=== PATIENT | female | born 1960 | race Caucasian/White ===

== ENCOUNTER 2017-11-23 16:37 | Inpatient (IN) ==
[2017-11-23] MEDS ORDERED: Isovue-370 500 ML INFUS..BTL IV ONE (17:07)
[2017-11-23] MEDS ORDERED: 0.9 % Sodium Chloride 1,000 ML IVC ONE (17:07)
[2017-11-23] MEDS ORDERED: Piperacillin/Tazobactam 3.375 GM in 0.9 % Sodium Chloride Mini Bag 100 ML IVPB ONE (17:11)
--- NOTE | 2017-11-23 17:13 | Emergency Department Note ---
Disposition Clinical Impression: Acute kidney injury Cellulitis Qualifiers: Site of cellulitis: extremity Site of cellulitis of extremity: lower extremity Laterality: right Qualified Code(s): L03.115 - Cellulitis of right lower limb Sepsis Qualifiers: Sepsis type: sepsis due to unspecified organism Qualified Code(s): A41.9 - Sepsis, unspecified organism Disposition: Still a Patient Condition: Fair Referrals: Bella Morales DO [Primary Care Provider] - Forms: ED Satisfaction Letter Time of Disposition: 19:32 Extremity Problem HPI - General Chief complaint: ED Extremity Problem,Nontraumatic Stated complaint: R foot swelling Time Seen by Provider: 11/23/17 16:47 Nursing Notes Reviewed: Yes Vital Signs Reviewed: Yes - History of Present Illness HPI Narrative: 49-year-old female presents from home for evaluation of right lower extremity swelling and redness which started 4 days ago. She was seen and evaluated in this emergency department 11/22 in the early hours in the morning. The area of redness was circumscribed with a purple pain and she was told to return if the redness expands beyond the inscribed area. It has expanded beyond the described area despite use of Bactrim which she was prescribed on that visit. She has associated chills and sweats with nausea. PMH: Hypertension, morbid obesity ROS: Positive: As above Negative: Vomiting, chest pain, palpitations, history of peripheral arterial or vascular disease, history of diabetes, history of poor healing wounds. Pain Scale: 3 - Related Data Previous Rx's Medication Instructions Recorded Sulfamethoxazole/Trimeth DS 1 each PO BID #19 tablet 11/22/17 [Bactrim DS] Allergies Allergy/AdvReac Type Severity Reaction Status Date / Time No Known Allergies Allergy Verified 11/21/17 23:56 All systems ED: reviewed and negative except as stated. Review of Systems: As Per HPI Past Medical History - Past Medical History Medical history: Reports: hypertension Psychiatric history: Reports: depression - Social History Smoking Status: Never smoker Alcohol use: Reports: none Drug use: Reports: none Physical Exam Vital Signs Reviewed General: Patient is alert, oriented, and in no acute distress. Head: atraumatic, normocephalic Eye: normal appearance, no scleral icterus, no conjunctival injection ENT: mucous membranes moist, normal external ear exam Neck: normal inspection, trachea midline, full ROM Chest: normal inspection, symmetric chest rise Respiratory: Poor respiratory effort. Musculoskeletal: Spontaneously moving all extremities. Skin: Right lower extremity has 2+ pitting pedal edema, significant erythema, crepitus to palpation, weeping ulceration. The boundary of erythema is spreading beyond the circumscribed lines from her prior emergency department visit. Neuro: Alert and oriented x4. Sensation light touch intact. Psych: Patient's affect is appropriate for situation. Course Course Narrative: Patient presents with worsening right lower extremity cellulitis. Has crepitus. Will CT soft tissue of right lower extremity with IV contrast. Patient denies need for analgesia at this time. She has no history of any kidney disease. Will empirically cover with vancomycin and Zosyn as well as draw blood cultures. Anticipate admission for continued IV antibiotics and aggressive therapy. CT lower extremity with IV contrast shows no subcutaneous gas in no organized fluid collection. Patient is SIRS (+) by tachypnea and WBC. Laboratory work shows acute kidney injury. Unfortunate, the patient has already received IV contrast as well as vancomycin. Will continue IV fluids. Patient is agreeable to admission for IV antibiotics for continued evaluation and management. I discussed the patient with the admitting hospitalist, Dr. Sotelo, who agrees to accept the patient for continued evaluation and management of her sepsis, acute kidney injury, Lower Extremity CT 11/23/17 17:07 IMPRESSION: 1. Severe subcutaneous edema with associated skin thickening most pronounced distally within the lower leg and most pronounced posteriorly and medially within the thigh. Findings may reflect longstanding venous stasis or lymph edema. Correlate clinically to exclude cellulitis. No subcutaneous gas identified. No organized fluid collection. 2. No acute osseous abnormality. No CT evidence for osteomyelitis. 3. Tricompartmental osteoarthritis of the right knee which is severe within the medial compartment. D/ / Tremaine Cleveland MD / Tremaine Cleveland MD Interpreting Provider: Tremaine Cleveland MD Vital Signs Temperature 98.0 F 11/23/17 16:39 Pulse Rate 93 11/23/17 16:39 Respiratory Rate 20 11/23/17 16:39 Blood Pressure 112/66 11/23/17 16:39 O2 Sat by Pulse Oximetry 93 11/23/17 16:39 Temperature 98.0 F 11/23/17 17:37 Pulse Rate 93 11/23/17 17:37 Respiratory Rate 20 11/23/17 17:37 Blood Pressure 112/66 11/23/17 17:37 O2 Sat by Pulse Oximetry 93 11/23/17 17:37 Oxygen Delivery Oxygen Delivery Room Air Extremity Problem, Nontraumati - Lab Data Result diagrams: 11/23/17 17:37 11/23/17 17:37 Lab Results 11/23/17 11/23/17 11/23/17 Range/Units 17:36 17:37 17:37 WBC 14.2 H (4.3-11.1) K/mcL RBC 4.31 (3.82-4.97) M/mcL Hgb 11.6 D (11.5-15.4) g/dL Hct 37.6 (35.3-44.9) % MCV 87.2 (83.0-100.0) fL MCH 26.9 L (28.0-33.3) pg MCHC 30.9 L (31.6-35.5) g/dL RDW 15.3 H (11.5-14.5) % Plt Count 167 (140-400) K/mcL MPV 11.1 (9.4-12.4) fL Immature Gran % 1.5 (0-4) % Seg Neutrophils % 91.0 % Lymphocytes % 3.9 % Monocytes % 3.4 % Eosinophils % 0.1 % Basophils % 0.1 % Neutrophils # 13.0 H (1.6-8.9) K/mcL Lymphocytes # 0.6 (0.6-4.6) K/mcL Monocytes # 0.5 (0.0-1.3) K/mcL Eosinophils # 0.0 (0.0-0.6) K/mcL Basophils # 0.0 (0.0-0.2) K/mcL Sodium 136 (136-145) mEq/L Potassium 3.3 L (3.5-5.1) mEq/L Chloride 102 (98-107) mEq/L Carbon Dioxide 26 (23-29) mEq/L BUN 44 H (6-20) mg/dL Creatinine 2.05 H (0.60-1.20) mg/dL Est GFR ( Amer) 30 L (> 60) Est GFR (Non-Af Amer) 25 L (> 60) BUN/Creatinine Ratio 21 (6-26) Glucose 140 H (70-105) mg/dL Calculated Osmolality 295 (280-300) Lactic Acid 1.5 (0.5-2.2) mmol/L Calcium 8.6 (8.6-10.3) mg/dL
[2017-11-23 18:04] LABS: Basophils % 0.1 %; Eosinophils % 0.1 %; Hematocrit 37.6 % (35.3-44.9); Hemoglobin 11.6 g/dL (11.5-15.4); Immature Granulocytes % 1.5 % (0-4); Lymphocytes # 0.6 K/mcL (0.6-4.6); Lymphocytes % 3.9 %; Mean Corpuscular HGB Conc 30.9 g/dL (31.6-35.5); Mean Corpuscular Hemoglobin 26.9 pg (28.0-33.3); Mean Corpuscular Volume 87.2 fL (83.0-100.0); Mean Platelet Volume 11.1 fL (9.4-12.4); Monocytes # 0.5 K/mcL (0.0-1.3); Monocytes % 3.4 %; Platelet Count 167 K/mcL (140-400); Red Blood Count 4.31 M/mcL (3.82-4.97); Red Cell Distribution Width 15.3 % (11.5-14.5)
[2017-11-23 18:13] LABS: Calcium 8.6 mg/dL (8.6-10.3); Potassium 3.3 mEq/L (3.5-5.1)
[2017-11-23] MEDS ORDERED: 0.9 % Sodium Chloride 1,000 ML IVC SCH (19:30)
--- NOTE | 2017-11-23 19:31 | Emergency Department Note ---
Disposition Clinical Impression: Cellulitis Qualifiers: Site of cellulitis: extremity Site of cellulitis of extremity: lower extremity Laterality: right Qualified Code(s): L03.115 - Cellulitis of right lower limb Disposition: Admitted As Inpatient Condition: Fair Referrals: Bella Morales DO [Primary Care Provider] - Forms: ED Satisfaction Letter General Adult HPI - General Chief complaint: ED Extremity Problem,Nontraumatic Stated complaint: R foot swelling Time Seen by Provider: 11/23/17 16:47 Source: patient Limitations: no limitations - History of Present Illness Pain Scale: 3 - Related Data Previous Rx's Medication Instructions Recorded Sulfamethoxazole/Trimeth DS 1 each PO BID #19 tablet 11/22/17 [Bactrim DS] Allergies Allergy/AdvReac Type Severity Reaction Status Date / Time No Known Allergies Allergy Verified 11/21/17 23:56 Past Medical History - Past Medical History Medical history: Reports: hypertension Psychiatric history: Reports: depression - Social History Smoking Status: Never smoker Alcohol use: Reports: none Drug use: Reports: none Physical Exam - General Limitations: no limitations General appearance: alert Course Vital Signs Temperature 98.0 F 11/23/17 16:39 Pulse Rate 93 11/23/17 16:39 Respiratory Rate 20 11/23/17 16:39 Blood Pressure 112/66 11/23/17 16:39 O2 Sat by Pulse Oximetry 93 11/23/17 16:39 Temperature 98.0 F 11/23/17 17:37 Pulse Rate 93 11/23/17 17:37 Respiratory Rate 20 11/23/17 17:37 Blood Pressure 112/66 11/23/17 17:37 O2 Sat by Pulse Oximetry 93 11/23/17 17:37 Oxygen Delivery Oxygen Delivery Room Air Medical Decision Making - Lab Data Result diagrams: 11/23/17 17:37 11/23/17 17:37 Lab Results 11/23/17 11/23/17 11/23/17 Range/Units 17:36 17:37 17:37 WBC 14.2 H (4.3-11.1) K/mcL RBC 4.31 (3.82-4.97) M/mcL Hgb 11.6 D (11.5-15.4) g/dL Hct 37.6 (35.3-44.9) % MCV 87.2 (83.0-100.0) fL MCH 26.9 L (28.0-33.3) pg MCHC 30.9 L (31.6-35.5) g/dL RDW 15.3 H (11.5-14.5) % Plt Count 167 (140-400) K/mcL MPV 11.1 (9.4-12.4) fL Immature Gran % 1.5 (0-4) % Seg Neutrophils % 91.0 % Lymphocytes % 3.9 % Monocytes % 3.4 % Eosinophils % 0.1 % Basophils % 0.1 % Neutrophils # 13.0 H (1.6-8.9) K/mcL Lymphocytes # 0.6 (0.6-4.6) K/mcL Monocytes # 0.5 (0.0-1.3) K/mcL Eosinophils # 0.0 (0.0-0.6) K/mcL Basophils # 0.0 (0.0-0.2) K/mcL Sodium 136 (136-145) mEq/L Potassium 3.3 L (3.5-5.1) mEq/L Chloride 102 (98-107) mEq/L Carbon Dioxide 26 (23-29) mEq/L BUN 44 H (6-20) mg/dL Creatinine 2.05 H (0.60-1.20) mg/dL Est GFR ( Amer) 30 L (> 60) Est GFR (Non-Af Amer) 25 L (> 60) BUN/Creatinine Ratio 21 (6-26) Glucose 140 H (70-105) mg/dL Calculated Osmolality 295 (280-300) Lactic Acid 1.5 (0.5-2.2) mmol/L Calcium 8.6 (8.6-10.3) mg/dL Attestation Statement - Attestation Attestation: I examined this patient and my medical decision-making was reviewed with the Resident Physician. I agree with the documented findings, disposition and treatment plan as described except to the extent set forth below. 57 year old female prsente to the eD with complanits of right foot swelling it appears to be worsenign cellulitis which has been confirmed by CT and we have initiated sepsis workup and will admit to medicine with zosyn and vancomycin theray
[2017-11-23] MEDS ORDERED: Acetaminophen 325 MG TABLET PO PRN (19:47)
[2017-11-23] MEDS ORDERED: Naloxone 0.4 MG/ML INJ IVP PRN (19:47)
--- NOTE | 2017-11-23 21:25 | Internal Med History&Physical ---
Date of Encounter: 11/23/17 Time of Encounter: 21:22 Internal Medicine - H&P: HPI Chief complaint: Right leg swelling. Admitted From: Home Plans for Post Hospital Care: Home History of present illness: Ms. Hester is a 57 year old female with medical history of GERD and hypertension morbid obesity who presented with worsening right lower extremity swelling and redness, and worsening pain. The patient had presented to the emergency room a few days ago with similar symptoms and was discharged on Bactrim. She represented to the ER today because of increasing weakness, lethargy, and worsening right lower extremity redness, swelling and pain. She reports subjective fever and chills, night sweats, and generalized weakness. She denies chest pain, shortness of breath, dizziness, or confusion. She denies genitourinary symptoms. She denies nausea, vomiting or diarrhea. She denies changes in urine output or color,, she denies forming urine. She reports she has been taking meloxicam for osteoarthritic pain, for several years. She has a family doctor she follows up regularly, last blood work in August was said to be normal. During the time of review, patient and family members were at the bedside, patient reports she is full code. Past medical history significant for hypertension, the patient does not remember her blood pressure medication. She denies a history of smoking or illicit drug use. Workup in the ER revealed severe sepsis with tachycardia, leukocytosis and acute kidney injury. Lactate was normal, hemodynamically stable, right lower extremity CAT scan ruled out any abscess collections. The patient will be admitted inpatient for management of sepsis secondary to cellulitis with acute kidney injury, hypokalemia, which is expected that her hospital stay will be more than 2 midnights. Past Med Surg Social Fam HX - Past Medical History Medical history: hypertension Psychiatric history: depression - Social History Smoking Status: Never smoker Alcohol use: none Drug use: none Internal Medicine - H&P: Meds Sulfamethoxazole/Trimeth DS [Bactrim DS] 1 each PO BID #19 tablet 11/22/17 [Rx] 3 Allergy/AdvReac Type Severity Reaction Status Date / Time No Known Allergies Allergy Verified 11/21/17 23:56 All Systems PM: A 10-system review of systems was performed and is negative for pertinent findings except as documented above in the HPI. - Constitutional Constitutional: as per HPI - EENT Eyes: as per HPI Ears: as per HPI Nose, mouth and throat: as per HPI - Cardiovascular Cardiovascular ROS IM: as per HPI - Respiratory Respiratory: as per HPI - Gastrointestinal Gastrointestinal: as per HPI - Genitourinary Genitourinary: as per HPI - Musculoskeletal Musculoskeletal ROS IM: as per HPI - Integumentary Integumentary IM: as per HPI - Neurological Neurological ROS: as per HPI - Hematologic/Lymphatic Hematologic/Lymphatic: as per HPI - Constitutional Vitals: Temp Pulse Resp BP Pulse Ox 98.8 F 91 18 122/85 93 11/23/17 20:43 11/23/17 20:43 11/23/17 20:43 11/23/17 20:43 11/23/17 20:43 General appearance: Present: A&O X 3, morbidly obese, pleasant, no acute distress - Head Head exam: Present: atraumatic, normocephalic - Eye Eye exam: Present: PERRL, conjuntiva pink, sclera anicteric Pupils: Present: PERRL - Neck Neck exam general surgery: Present: supple, trachea midline. Absent: lymphadenopathy - Respiratory Respiratory exam: Present: CTAB. Absent: accessory muscle use, rales, rhonchi, wheezes - Cardiovascular Cardiovascular exam: Present: RRR, +S1, +S2. Absent: diastolic murmur, gallop, rubs, systolic murmur - GI/Abdominal GI/Abdominal exam: Present: normal bowel sounds, soft, no peritoneal signs. Absent: distended, tenderness - Extremities Exam Additional comments: Right lower extremity with swelling, to the knees, diffuse erythema and tenderness, no visible indurations or abscess collections. Left Lower extremities unremarkable - Neurological Exam Neurological exam: Present: alert, CN II-XII intact, oriented X3, no focal deficits. Absent: pronater drift, facial droop, speech deficit - Skin Skin exam: Present: dry Internal Med - H&P Results - Labs CBC & Chem 7: 11/23/17 17:37 11/23/17 17:37 - Assessment and plan (1) Severe sepsis Current Visit: Yes Status: Acute Assessment and plan: Patient meets severe sepsis criteria with heart rate of 93 on presentation, leukocytosis with white count greater than 14,000, source of sepsis is cellulitis, with associated end organ damage acute kidney injury. The patient received vancomycin and Zosyn in the ER. Blood cultures are drawn and preliminary negative. Due to acute kidney injury, we will discontinue vancomycin and Zosyn, continue clindamycin. Follow blood culture reports Lactic acid is normal, Blood pressure is within normal limits at this time. IV fluid resuscitation (2) Cellulitis Current Visit: Yes Status: Acute Assessment and plan: Management as in sepsis above No abscess collection No indication for surgery evaluation at this time. Qualifiers: Site of cellulitis: extremity Site of cellulitis of extremity: lower extremity Laterality: right Qualified Code(s): L03.115 - Cellulitis of right lower limb (3) Acute kidney injury Current Visit: Yes Status: Acute Assessment and plan: Patient with acute kidney injury baseline creatinine approximately 1, presented with creatinine of 2.05 Most likely prerenal, could be component of intrarenal due to use of Bactrim with and NSAIDS Obtain stat urine analysis, urinary sodium and urine creatinine, Continue IV fluid hydration Obtain retroperitoneal ultrasound Strict intake and output Avoid nephrotoxins Consider nephrology input if not improving. (4) Morbid obesity with BMI of 60.0-69.9, adult Current Visit: Yes Status: Chronic Assessment and plan: Lifestyle modification. (5) Hypertension Current Visit: Yes Status: Chronic Assessment and plan: Patient does not remember home medications Start Norvasc 5 mg by mouth daily from morning. Qualifiers: Hypertension type: essential hypertension Qualified Code(s): I10 - Essential (primary) hypertension (6) GERD (gastroesophageal reflux disease) Current Visit: Yes Status: Chronic Assessment and plan: Continue Zantac. Qualifiers: Esophagitis presence: without esophagitis Qualified Code(s): K21.9 - Gastro -esophageal reflux disease without esophagitis - Time Spent With Patient Total time spent is greater than 50% in coordination of care (as documented) at patient's floor/unit and/or counseling patient:
[2017-11-23] MEDS: Clindamycin 600 MG/50 ML 600 MG/50 ML IV.SOLN IVPB SCH (23:34)
[2017-11-23] MEDS: traMADol 50 MG TABLET PO PRN (23:34)
[2017-11-23] MEDS: Ringers Solution, Lactated 1,000 ML IVC SCH (23:44)
[2017-11-24 04:35] LABS: Basophils % 0.2 %; Eosinophils % 0.2 %; Hematocrit 35.4 % (35.3-44.9); Hemoglobin 11.1 g/dL (11.5-15.4); Immature Granulocytes % 1.4 % (0-4); Lymphocytes # 0.5 K/mcL (0.6-4.6); Lymphocytes % 4.7 %; Mean Corpuscular HGB Conc 31.4 g/dL (31.6-35.5); Mean Corpuscular Hemoglobin 27.4 pg (28.0-33.3); Mean Corpuscular Volume 87.4 fL (83.0-100.0); Monocytes # 0.5 K/mcL (0.0-1.3); Monocytes % 4.7 %; Neutrophils # 9.8 K/mcL (1.6-8.9); Platelet Count 156 K/mcL (140-400); Red Blood Count 4.05 M/mcL (3.82-4.97); Red Cell Distribution Width 15.4 % (11.5-14.5); Segmented Neutrophils % 88.8 %
[2017-11-24 04:55] LABS: Calcium 8.5 mg/dL (8.6-10.3); Potassium 3.6 mEq/L (3.5-5.1)
[2017-11-24] MEDS: *HR* Heparin 5,000 UNIT/ML VIAL SQ SCH ×2 (05:11→17:44)
[2017-11-24 08:21] LABS: Bilirubin,Urine Negative (Negative); Blood,Urine Small (Negative); Clarity,Urine Clear (Clear); Color,Urine Yellow (Yellow); Glucose,Urine (UA) Normal (Normal); Ketones,Urine Negative (Negative); Leukocyte Esterase,Urine Negative (Negative); Nitrite,Urine Negative (Negative); PH,Urine 6.5 pH Units (5.0-8.0); Protein,Urine 100 mg/dL (Neg-Trace); Specific Gravity,Urine 1.025 (1.010-1.025); Urobilinogen,Urine Normal (Normal)
[2017-11-24 08:31] LABS: Sodium, Urine 30.4 mEq/L
[2017-11-24] MEDS: Ringers Solution, Lactated 1,000 ML IVC SCH (09:21)
[2017-11-24] MEDS: Clindamycin 600 MG/50 ML 600 MG/50 ML IV.SOLN IVPB SCH (09:22)
[2017-11-24] MEDS: amLODIPine 5 MG TABLET PO SCH (09:29)
--- NOTE | 2017-11-24 12:23 | Internal Med Progress Note ---
Date of Encounter: 11/24/17 Time of Encounter: 12:21 - Assessment and plan (1) Cellulitis Current Visit: Yes Status: Acute Assessment and plan: Management as in sepsis above No abscess collection No indication for surgery evaluation at this time. 11/24-significant cellulitis involving almost the entire lower leg. This point I would like to continue clindamycin however my threshold of adding another antibiotic is low. Consult placed to infectious disease given the severity of the extent of cellulitis. Patient does have a history of vaginal hysterectomy and lymph node removal because of which she has chronic lymphedema which predisposes her to her risk of getting cellulitis. Qualifiers: Site of cellulitis: extremity Site of cellulitis of extremity: lower extremity Laterality: right Qualified Code(s): L03.115 - Cellulitis of right lower limb (2) Acute kidney injury Current Visit: Yes Status: Acute Assessment and plan: Patient with acute kidney injury baseline creatinine approximately 1, presented with creatinine of 2.05 Most likely prerenal, could be component of intrarenal due to use of Bactrim with and NSAIDS Obtain stat urine analysis, urinary sodium and urine creatinine, Continue IV fluid hydration Obtain retroperitoneal ultrasound Strict intake and output Avoid nephrotoxins Consider nephrology input if not improving. 11/24-acute renal failure is now improving her creatinine today is 1.37 and slowly returned to baseline. I will continue IV fluids today and monitor BMP in the morning. (3) Severe sepsis Current Visit: Yes Status: Resolved Assessment and plan: Patient meets severe sepsis criteria with heart rate of 93 on presentation, leukocytosis with white count greater than 14,000, source of sepsis is cellulitis, with associated end organ damage acute kidney injury. The patient received vancomycin and Zosyn in the ER. Blood cultures are drawn and preliminary negative. Due to acute kidney injury, we will discontinue vancomycin and Zosyn, continue clindamycin. Follow blood culture reports Lactic acid is normal, Blood pressure is within normal limits at this time. IV fluid resuscitation 11/24-sepsis is slowly getting resolved at this point. Leukocytosis is improved. Most likely etiology is cellulitis. (4) Morbid obesity with BMI of 60.0-69.9, adult Current Visit: Yes Status: Chronic Assessment and plan: Lifestyle modification education provided again (5) Hypertension Current Visit: Yes Status: Chronic Assessment and plan: Patient does not remember home medications Start Norvasc 5 mg by mouth daily from morning. Qualifiers: Hypertension type: essential hypertension Qualified Code(s): I10 - Essential (primary) hypertension (6) GERD (gastroesophageal reflux disease) Current Visit: Yes Status: Chronic Assessment and plan: Continue Zantac. Qualifiers: Esophagitis presence: without esophagitis Qualified Code(s): K21.9 - Gastro -esophageal reflux disease without esophagitis - Time Spent With Patient Total time spent is greater than 50% in coordination of care (as documented) at patient's floor/unit and/or counseling patient: Case also discussed with the patient's family at the bedside and also discussed the plan of care with the nurse at the bedside Greater than 35 minutes - Subjective Interval history: Patient continues to have pain in the right lower extremity. She states that the redness is getting worse however she does not have any new fevers or chills at this point. - Constitutional Vitals: Temp Pulse Resp BP Pulse Ox 98.4 F 102 18 133/75 94 11/24/17 07:43 11/24/17 07:43 11/24/17 07:43 11/24/17 07:43 11/24/17 07:43 General appearance: Present: A&O X 3, morbidly obese, pleasant, no acute distress Exam: GENERAL: Alert, moderate distress, cooperative EYES: PERRLA, EOMI EARS: External ears normal, canals clear OROPHARYNX: Lips, mucosa, and tongue normal. Teeth and gums normal. Oropharynx normal. NECK: No jugulovenous distention, No carotid bruits, Carotid pulse normal contour, Supple LUNGS: Lungs clear to auscultation, Good diaphragmatic excursion CARDIAC: Normal S1 and S2; no rubs, murmurs, or gallops ABDOMEN: Abdomen soft, non-tender, BS normal, No masses or organomegaly EXTREMITIES: Right lower extremity diffuse edema throughout. Extensive erythematous cellulitis seen in below the knee. She does have some fluid- filled blisters. Significant dorsal edema on the foot as well. The erythema is extending beyond the marked area that was outlined in the ER on her prior visit NEURO: Gait normal. Reflexes normal and symmetric. Sensation grossly intact, Cranial nerves II-XII intact PULSES: 2+ radial, 2+ carotid Rest of the exam is non contributory Internal Medicine: Result - Labs CBC & Chem 7: 11/24/17 04:09 11/24/17 04:09 Labs: Short CBC 11/24/17 Range/Units 04:09 WBC 11.0 (4.3-11.1) K/mcL Hgb 11.1 L (11.5-15.4) g/dL Hct 35.4 (35.3-44.9) % Plt Count 156 (140-400) K/mcL Neutrophils # 9.8 H (1.6-8.9) K/mcL BMP 11/24/17 04:09 Sodium 137 Potassium 3.6 Chloride 106 Carbon Dioxide 25 BUN 41 H Creatinine 1.37 H Glucose 135 H Calcium 8.5 L Urine 11/24/17 Range/Units 08:10 Urine Color Yellow (Yellow) Urine Clarity Clear (Clear) Urine pH 6.5 (5.0-8.0) pH Units Ur Specific [place] 1.025 (1.010-1.025) Urine Protein 100 H (Neg-Trace) mg/dL Urine Glucose (UA) Normal (Normal) mg/dL Consult Discharge Plan - Plan Referrals: Bella Morales DO [Primary Care Provider] -
--- NOTE | 2017-11-24 14:38 | Infectious Disease Consult ---
Date of Encounter: 11/24/17 Time of Encounter: 14:33 Infectious Disease HPI - Data of Consult Patient: new to practice Consult date: 11/24/17 Requesting Physician: Josef Alberto Primary Care Provider: Saul Ness - Consult Narrative Reason for consult: RLE Cellulitis History of present illness: Ms. Hester is a 57 year old female with a past medical history of GERD, morbid obesity, and HTN. The patient was admitted to the hospital November 23 for right lower extremity cellulitis. We are consult November 24 for further recommendations for right lower extremity cellulitis. Briefly, the patient is a 57-year-old female with past medical history as stated above. The patient had presented to the emergency department on November 22 with complaints of right lower extremity redness and swelling. She was given a prescription for Bactrim and had the edges of the cellulitis were marked and was discharged home. She states that despite taking the Bactrim as prescribed her symptoms worsen so she came back to the emergency department. Upon arrival , the patient was afebrile. She was tachycardic and had leukocytosis with an acute kidney injury. She had a CT of the lower extremity that showed severe subcutaneous edema concerning for venous stasis versus lymphedema versus cellulitis. Blood cultures were obtained 2 sets and are pending. She was started empirically on IV vancomycin and IV Zosyn and admitted to the hospital for further evaluation. Since admission, the patient has remained afebrile. Her tachycardia has improved. White blood cell count has normalized. Her acute kidney injury is better. Her antibiotics then transitioned to IV clindamycin. Urinalysis was negative. Retroperitoneal ultrasound is pending completion. We have been asked to evaluate and make further recommendations. During my exam today, the patient endorses a history as stated above. She reported subjective fevers and chills with rigors. She denied any headache or neck pain. She denies any congestion, earache, or sore throat. She denies any chest pain, shortness of breath, or cough. She denies any nausea or vomiting or diarrhea. She denies abdominal pain, urinary complaints, or appetite changes. She states that generally she just felt unwell and was very tired and wanted to sleep all day. She states that about 4 days prior to presentation she began to notice some redness and swelling of the right foot slowly progressed up her leg. She states that the redness and swelling persisted and got worse by taking the Bactrim. He states that while here her leg started the oral thrush or other skin lesions. She states that since having her hysterectomy a few years ago she has had persistent swelling of the right lower extremity, but denies any discoloration of the leg or the foot. She denies any known trauma to the extremity. She states that overall the leg is not terribly painful, just uncomfortable. She states it feels a little better today, but doesn't look much better. And granddaughter. 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 She denies any tobacco, alcohol, or illicit drug use. She denies any history of diabetes. She denies any pet or animal exposure to the affected area. She denies any prolonged exposure to water. She denies any infectious history. She denies any recent travel outside the [facility]. CC: Josef Alberto Past Med Surg Social Fam HX - Past Medical History Attestation: Yes The following information was validated with the patient. Source: patient, old records reviewed, nursing notes reviewed Medical history: GERD, hypertension Additional medical history: Acid reflux Psychiatric history: depression - Past Surgical History Surgical History: hysterectomy - Social History Smoking Status: Never smoker Smokeless Tobacco Status: No Alcohol use: none Drug use: none Occupational status: employed Current living situation: Home - Independent Activity Level: Independent ambulation Recent Out of Country Travel Within the Last 8 Weeks: No Exposure or Possible Exposure to Illness During Travel: No Infectious Disease-CN:Meds BuPROPion XL (24 HR) [Wellbutrin Xl] 150 mg PO DAILY 11/24/17 [History] Acetaminophen [Tylenol] 650 mg PO Q6HR PRN tablet 11/25/17 [Rx] Heparin 5,000 unit SQ Q12HCO vial 11/25/17 [Rx] Mag Hydrox/Al Hydrox/Simeth [Maalox] 30 ml PO Q6HR PRN udc 11/25/17 [Rx] Pantoprazole [Protonix] 40 mg IVP BID vial 11/25/17 [Rx] Rjahzundrcjf-Pnym-Xizezwqw,Iso [Zosyn 3.375 gm/50 ml Galaxy] 3.375 gm IV Q8HR # 120 froz.piggy 11/25/17 [Rx] Vancomycin HCl in 5 % Dextrose [Vancomycin 2 Gram/500 ml-D5w] 2 gm IV DAILY # 120 plast..bag 11/25/17 [Rx] 3 Allergy/AdvReac Type Severity Reaction Status Date / Time No Known Allergies Allergy Verified 11/24/17 10:01 All systems: reviewed and no additional remarkable complaints except as stated Exam - Constitutional Vitals: Temp Pulse Resp BP Pulse Ox 98.4 F 102 18 133/75 94 11/24/17 07:43 11/24/17 07:43 11/24/17 07:43 11/24/17 07:43 11/24/17 07:43 General appearance: cooperative, morbidly obese, no acute distress - Head Head exam: Present: atraumatic, normal inspection, normocephalic - Eye Eye exam: Present: EOMI, normal appearance, PERRL Pupils: Present: normal accommodation - ENT ENT exam: Present: mucous membranes moist - Neck Neck exam: Present: normal inspection - Respiratory Respiratory exam: Present: CTAB. Absent: rales, respiratory distress, rhonchi, wheezes - Cardiovascular Cardiovascular exam: Present: RRR, +S1, +S2 - GI/Abdominal GI/Abdominal exam: Present: distended (obese), normal bowel sounds, soft. Absent: tenderness - Extremities Exam Extremities exam: Present: pedal edema (1+ LLE, 3+ RLE). Absent: joint swelling , tenderness Additional comments: RLE erythematous from proximal to right knee to toes. Weeping blisters x 2 noted to the anterior aspect of the RLE draining serous fluid. - Neurological Exam Neurological exam: Present: alert, oriented X3, no focal deficits - Psychiatric Psychiatric exam: Present: normal affect, normal mood - Skin Skin exam: Present: dry, intact, normal color, warm Infectious Disease CN: Results - Labs CBC & Chem 7: 11/25/17 11:45 11/25/17 08:53 Serology: Serology 11/24/17 11/24/17 Range/Units 08:10 08:10 Urine Color Yellow (Yellow) Urine Clarity Clear (Clear) Urine pH 6.5 (5.0-8.0) pH Units Ur Specific [place] 1.025 (1.010-1.025) Urine Protein 100 H (Neg-Trace) mg/dL Urine Glucose (UA) Normal (Normal) mg/dL Urine Ketones Negative (Negative) mg/dL Urine Blood Small H (Negative) Urine Nitrite Negative (Negative) Urine Bilirubin Negative (Negative) Urine Urobilinogen Normal (Normal) mg/dL Ur Leukocyte Esterase Negative (Negative) Urine Creatinine 99 mg/dL Urine Sodium 30.4 mEq/L Consult Discharge Plan - Plan Referrals: Bella Morales DO [Primary Care Provider] - Prescriptions: Dvlmnqahmjcb-Srka-Uvxvvurs,Iso [Zosyn 3.375 gm/50 ml Galaxy] 3.375 gm IV Q8HR # 120 froz.piggy Vancomycin HCl in 5 % Dextrose [Vancomycin 2 Gram/500 ml-D5w] 2 gm IV DAILY # 120 plast..bag - Attending Attestation I examined this patient and my medical decision-making was reviewed with the Resident Physician. I agree with the documented findings, disposition and treatment plan as described except to the extent set forth below. This is an addendum to original report dictated by Chhaya Bella nurse practitioner please refer to Chhaya's note for full detail. Patient is a 57-year-old woman who is presented with severe cellulitis of the right lower extremity. We were consulted to make antibiotic recommendations. Sodium patient presented to the MRSA department on day prior complaining of right lower extremity redness and swelling. Patient was given prescription for Bactrim and apparently it made things worse. On further questioning patient tells me that she had a hysterectomy in the past and has had lymphedema in the right lower extremity that is always more swollen than the left lower extremity but she tells me now is even swollen more with associated erythema and warmth to touch. Patient presented to the ER for evaluation. Since admission patient had a CT of the lower extremity which shows severe 70s edema concerning for venous stasis versus lymphedema versus cellulitis. Cultures were obtained and patient was started empirically on vancomycin and Zosyn. Clinically patient started doing better and all cultures were still pending. We were asked to evaluate the patient and make further recommendations. Currently patient was sitting on the side of the bed very pleasant with her foot on the floor. I told her that is better if she keeps her somewhat elevated and she tells me that she did not all day today. Her son I believe was admitted time. Patient feels great she denies any headaches no chest pain or shortness of breath no diarrhea pain no other symptoms. assessment and plan: severe sepsis patient has sirs criteria with end organ damage including acute kidney injury. severe cellulitis of the right lower extremity; ct was negative for abscess or signs of necrotizing fasciitis. patient was started empirically on vancomycin and zosyn. causative organism has not been identified. we will continue current antibiotics for now since she failed outpatient oral antibiotic therapy. monitor labs closely specially kidney function with a recent creatinine of 2. check labs and inflammatory markers. if patient continues to improve in 2-3 days we will probably switch her to oral option hopefully that she can tolerate. monitor labs and for drug toxicity.
[2017-11-24] MEDS: traMADol 50 MG TABLET PO PRN ×2 (18:16→23:57)
[2017-11-24] MEDS: Piperacillin/Tazobactam 3.375 GM in 0.9 % Sodium Chloride Mini Bag 100 ML IVPB SCH (20:31)
[2017-11-24] MEDS: *HR* OxyCODONE Immed Rel 5 MG TABLET PO PRN (21:26)
[2017-11-24] MEDS ORDERED: Melatonin 3 MG TABLET PO SCH (23:30)
[2017-11-25] MEDS ORDERED: *HR* LORazepam 0.5 MG TABLET PO ONE ×2 (03:36→11:45)
[2017-11-25] MEDS: *HR* Heparin 5,000 UNIT/ML VIAL SQ SCH (05:45)
[2017-11-25] MEDS: Piperacillin/Tazobactam 3.375 GM in 0.9 % Sodium Chloride Mini Bag 100 ML IVPB SCH ×2 (08:12→12:03)
[2017-11-25] MEDS: amLODIPine 5 MG TABLET PO SCH (08:23)
[2017-11-25] MEDS: *HR* OxyCODONE Immed Rel 5 MG TABLET PO PRN (08:23)
[2017-11-25] MEDS ORDERED: BuPROPion XL (24 HR) 150 MG TABLET PO SCH (09:00)
[2017-11-25] MEDS ORDERED: *HR* LORazepam 1 MG TABLET PO PRN (09:14)
[2017-11-25 09:45] LABS: Hematocrit 32.1 % (35.3-44.9); Hemoglobin 10.3 g/dL (11.5-15.4); Mean Corpuscular HGB Conc 32.1 g/dL (31.6-35.5); Mean Corpuscular Hemoglobin 28.3 pg (28.0-33.3); Mean Corpuscular Volume 88.2 fL (83.0-100.0); Mean Platelet Volume 11.3 fL (9.4-12.4); Nucleated Red Blood Cells 0.1 /100 WBC (0); Platelet Count 220 K/mcL (140-400); Red Blood Count 3.64 M/mcL (3.82-4.97); Red Cell Distribution Width 15.9 % (11.5-14.5)
[2017-11-25 10:11] LABS: Calcium 8.7 mg/dL (8.6-10.3); Potassium 4.2 mEq/L (3.5-5.1)
[2017-11-25] MEDS ORDERED: Mag Hydrox/Al Hydrox/Simeth 30 ML UDC PO PRN (10:34)
[2017-11-25 10:38] LABS: Lymphocytes # 1.5 K/mcL (0.6-4.6); Monocytes # 0.7 K/mcL (0.0-1.3); Neutrophils # 16.3 K/mcL (1.6-8.9)
[2017-11-25] MEDS ORDERED: *HR* Heparin 5,000 UNIT/ML VIAL IVP PRN ×2 (10:38)
[2017-11-25] MEDS ORDERED: *HR* Heparin 5,000 UNIT/ML VIAL IVP ONE (10:38)
[2017-11-25 10:39] LABS: Platelet Estimate Normal (Normal)
[2017-11-25] MEDS ORDERED: Heparin 25,000 UNIT/500 ML D5W 25,000 UNIT/500 ML BAG IVC SCH (10:45)
[2017-11-25] MEDS ORDERED: Pantoprazole 40 MG VIAL IVP SCH (10:45)
--- NOTE | 2017-11-25 10:47 | Internal Med Progress Note ---
Date of Encounter: 11/25/17 Time of Encounter: 10:43 - Assessment and plan (1) Acute respiratory failure Current Visit: Yes Status: Acute Assessment and plan: Acute respiratory failure with hypoxia. This appears to be multifactorial. Differential diagnosis as fluid overload from the IV fluids that the patient got with potential underlying COPD/sleep apnea. Other differential could be acute pulmonary embolism given the patient has a history of chronic lymphedema. I have discussed this case extensively with the clinical pharmacist on the floor and we are going to be starting a IV heparin drip and then continuing to pursue diagnosis of the acute hypoxic respiratory failure at this point. A stat chest x-ray portable has been ordered as well as a portable KUB. If there is evidence of fluid overload she will need Lasix and diuresis, if negative the next step would be to do a VQ scan to rule out for pulmonary embolism. I will also check a stat ABG which has also been ordered at this point. I do have a low threshold for putting the patient on ICU if she clinically deteriorates. Qualifiers: Respiratory failure complication: hypoxia Qualified Code(s): J96.01 - Acute respiratory failure with hypoxia (2) Cellulitis Current Visit: Yes Status: Acute Assessment and plan: Management as in sepsis above No abscess collection No indication for surgery evaluation at this time. 11/24-significant cellulitis involving almost the entire lower leg. This point I would like to continue clindamycin however my threshold of adding another antibiotic is low. Consult placed to infectious disease given the severity of the extent of cellulitis. Patient does have a history of vaginal hysterectomy and lymph node removal because of which she has chronic lymphedema which predisposes her to her risk of getting cellulitis. 11/25-continues to have significant cellulitis. Infectious disease has been consulted and I appreciate their follow-up. They have changed the antibiotics from clindamycin to vancomycin and Zosyn with renal dosing. Continue to monitor closely Qualifiers: Site of cellulitis: extremity Site of cellulitis of extremity: lower extremity Laterality: right Qualified Code(s): L03.115 - Cellulitis of right lower limb (3) Acute kidney injury Current Visit: Yes Status: Acute Assessment and plan: Patient with acute kidney injury baseline creatinine approximately 1, presented with creatinine of 2.05 Most likely prerenal, could be component of intrarenal due to use of Bactrim with and NSAIDS Obtain stat urine analysis, urinary sodium and urine creatinine, Continue IV fluid hydration Obtain retroperitoneal ultrasound Strict intake and output Avoid nephrotoxins Consider nephrology input if not improving. 11/24-acute renal failure is now improving her creatinine today is 1.37 and slowly returned to baseline. I will continue IV fluids today and monitor BMP in the morning. 11/25-creatinine had improved yesterday but again has gotten worse today is again a 2.05. A consult has been placed in nephrology. Potential etiology at this point is vancomycin toxicity-we will check a trough level before the next dose and adjust according to renal dosing. (4) Severe sepsis Current Visit: Yes Status: Resolved Assessment and plan: Patient meets severe sepsis criteria with heart rate of 93 on presentation, leukocytosis with white count greater than 14,000, source of sepsis is cellulitis, with associated end organ damage acute kidney injury. The patient received vancomycin and Zosyn in the ER. Blood cultures are drawn and preliminary negative. Due to acute kidney injury, we will discontinue vancomycin and Zosyn, continue clindamycin. Follow blood culture reports Lactic acid is normal, Blood pressure is within normal limits at this time. IV fluid resuscitation 11/24-sepsis is slowly getting resolved at this point. Leukocytosis is improved. Most likely etiology is cellulitis. 11/25-patient is again meeting the criteria for severe sepsis at this point. Her white count has gotten worse in addition she is also now more short of breath. blood cultures are pending at this point. I will continue current antibiotics and tailor her treatment accordingly (5) Morbid obesity with BMI of 60.0-69.9, adult Current Visit: Yes Status: Chronic Assessment and plan: Lifestyle modification education provided again (6) Hypertension Current Visit: Yes Status: Chronic Assessment and plan: Patient does not remember home medications Start Norvasc 5 mg by mouth daily from morning. Qualifiers: Hypertension type: essential hypertension Qualified Code(s): I10 - Essential (primary) hypertension (7) GERD (gastroesophageal reflux disease) Current Visit: Yes Status: Chronic Assessment and plan: We will switch to PPI and keep her on twice a day dosing for now. Also add when necessary Maalox given her epigastric pain. Imaging to check KUB today. Qualifiers: Esophagitis presence: without esophagitis Qualified Code(s): K21.9 - Gastro -esophageal reflux disease without esophagitis - Time Spent With Patient Total time spent is greater than 50% in coordination of care (as documented) at patient's floor/unit and/or counseling patient: Greater than 35 minutes - Subjective Interval history: Patient continues to have swelling in the right lower extremity as well as the erythema which is still there. Her pain is overall a little bit better in the right lower extremity. Off note she has been becoming more and more short of breath over the last 8-10 hours and patient also complains of epigastric abdominal pain and rated about 6/10 in severity, described as sharp and nonradiating. She states she has had bowel movements since she has been to the hospital and did not describe any bleeding or dark stools. Her pulse oximetry was documented as 87 on room air - Constitutional Vitals: Temp Pulse Resp BP Pulse Ox 97.4 F L 120 40 112/63 92 11/25/17 10:21 11/25/17 10:21 11/25/17 10:21 11/25/17 10:21 11/25/17 10:21 General appearance: Present: A&O X 3, morbidly obese, pleasant, no acute distress Exam: GENERAL: Alert, appears to be in respiratory distress, cooperative, morbidly obese EYES: PERRLA, EOMI EARS: External ears normal, canals clear OROPHARYNX: Lips, mucosa, and tongue normal. Teeth and gums normal. Oropharynx normal. NECK: No jugulovenous distention, No carotid bruits, Carotid pulse normal contour, Supple LUNGS: Tachypnea, still has bilateral good air entry. I could not completely auscultate the bases of her lungs because the patient is unable to turn over. CARDIAC: Tachycardic; no rubs, murmurs, or gallops ABDOMEN: Abdomen soft, non-tender, BS normal, No masses or organomegaly EXTREMITIES: Right lower extremity- extensive edema and erythema below the knee with the area being marked a second time Rest of the exam is non contributory Internal Medicine: Result - Labs CBC & Chem 7: 11/25/17 08:53 11/25/17 08:53 Labs: Short CBC 11/25/17 Range/Units 08:53 WBC 18.5 H D (4.3-11.1) K/mcL Hgb 10.3 L (11.5-15.4) g/dL Hct 32.1 L (35.3-44.9) % Plt Count 220 (140-400) K/mcL Neutrophils # 16.3 H (1.6-8.9) K/mcL BMP 11/25/17 08:53 Sodium 140 Potassium 4.2 Chloride 105 Carbon Dioxide 22 L BUN 49 H Creatinine 2.09 H Glucose 186 H Calcium 8.7 - Impressions Impressions Retroperitoneum Ultrasound 11/24/17 16:30 IMPRESSION: No suspicious renal mass or hydronephrosis. Left renal cortical cysts are noted. D/ / Mg Troncoso MD / Mg Troncoso MD Interpreting Provider: Mg Troncoso MD Consult Discharge Plan - Plan Referrals: Bella Morales DO [Primary Care Provider] -
[2017-11-25 11:02] LABS: ABG Base Excess -1 mEq/L (-2 to 3); ABG HCO3 25 mEq/L (21-27); ABG Oxygen Saturation 90 % (95-98); ABG PCO2 47 mmHg (35-45); ABG PH 7.34 pH Units (7.32-7.45); ABG PO2 62 mmHg (85-104); ABG TCO2 26 mEq/L (20-26)
[2017-11-25] MEDS: traMADol 50 MG TABLET PO PRN (11:33)
[2017-11-25] MEDS ORDERED: Furosemide 40 MG/4 ML VIAL IVP ONE (11:44)
[2017-11-25 12:00] LABS: Hematocrit 33.9 % (35.3-44.9); Hemoglobin 10.5 g/dL (11.5-15.4); Mean Corpuscular Hemoglobin 27.1 pg (28.0-33.3); Mean Corpuscular Volume 87.6 fL (83.0-100.0); Mean Platelet Volume 11.2 fL (9.4-12.4); Platelet Count 247 K/mcL (140-400); Red Blood Count 3.87 M/mcL (3.82-4.97)
[2017-11-25] MEDS ORDERED: Furosemide 20 MG/2 ML VIAL IVP ONE (12:00)
[2017-11-25 12:09] VITALS: BP 107/68
[2017-11-25 12:13] LABS: Heparin anti-factor XA UFH 0.02 IU/mL (0.30-0.70); INR 1.1; Prothrombin Time 12.6 Seconds (9.4-12.1)
[2017-11-25] MEDS ORDERED: 0.9 % Sodium Chloride 500 ML IVC ONE (12:44)
[2017-11-25] MEDS ORDERED: 0.9 % Sodium Chloride 500 ML ONE (13:00)
--- NOTE | 2017-11-25 14:37 | Discharge Summary ---
- NOTES TO OUTPATIENT PROVIDER Notes to Outpatient Provider: No follow-up planned for now. Patient is being transferred to critical care at [facility] Orders not resulted at time of discharge: Pending orders 11/25/17 10:30 KUB [XR KUB] [XR] Stat 11/25/17 16:00 CT abd pelvis wo iv oral only [CT] Stat 11/25/17 19:00 Vancomycin,Trough Timed Date of Encounter: 11/25/17 Time of Encounter: 14:35 - Discharge Diagnosis (1) Acute respiratory failure Priority: Secondary Status: Acute Qualifiers: Respiratory failure complication: hypoxia Qualified Code(s): J96.01 - Acute respiratory failure with hypoxia (2) Cellulitis Priority: Secondary Status: Acute Qualifiers: Site of cellulitis: extremity Site of cellulitis of extremity: lower extremity Laterality: right Qualified Code(s): L03.115 - Cellulitis of right lower limb (3) Acute kidney injury Priority: Secondary Status: Acute (4) Severe sepsis Priority: Primary Status: Resolved (5) Morbid obesity with BMI of 60.0-69.9, adult Priority: Secondary Status: Chronic (6) Hypertension Priority: Secondary Status: Chronic Qualifiers: Hypertension type: essential hypertension Qualified Code(s): I10 - Essential (primary) hypertension (7) GERD (gastroesophageal reflux disease) Priority: Secondary Status: Chronic Qualifiers: Esophagitis presence: without esophagitis Qualified Code(s): K21.9 - Gastro -esophageal reflux disease without esophagitis Hospital course: Ms. Hester is a 57 year old female with morbid obesity who presented with right lower extremity cellulitis and severe sepsis because of it. She also was in acute renal failure at the time of admission her baseline creatinine being 1.0. She was initially given a dose of vancomycin and Zosyn and then switched to clindamycin on day 2 of admission her renal function improved significantly but that works pretty cellulitis was worsened. On day 3 of admission the patient developed hypoxia and some mid abdominal discomfort with abdominal distention. EKG showed sinus tachycardia and no ST elevation or depression. An ABG did not show any acidosis or alkalosis but showed hypoxia and no evidence of hypercarbia. A chest x-ray was done on a stat basis which showed fluid overload and bilateral lung bases. She also had some anxiety and Ativan was provided to help her do it. Her abdominal pain continued to get worse and then lactic acid was elevated at 2.6. I discussed the case with general surgery on consult recommending stat transferred to [facility]. [facility] did not have any surgical acute-care beds and hence the patient was discussed with [facility] where a bed has been arranged and she will be transported via critical care transport to that facility. She has been given a fluid bolus for her lactic acid and her blood pressure is in the 140 to 1:15 range right now. She is on 2 L of nasal cannula and respiratory rate is in the low 30s. A CT scan of abdomen and pelvis with oral contrast only has been ordered and the patient is having a tough time drinking the contrast at this point. She will still continue to drink a lot of contrast and may need to have the CAT scan completed at [facility] once the patient reaches there. Her white count today has worsened to 18,000 and infectious disease would like to continue the vancomycin and Zosyn. There is suggestion is also to switch to daptomycin if that could be considered in the further care of this patient when she reaches [facility]. A CAT scan of the leg was also ordered to rule out necrotizing fasciitis which has not yet been completed and could be performed once the patient reaches [facility]. Currently the patient is in the ICU and I have discussed with the ICU intensive care nurse of her head at [facility]. Her plan of care was also formulated after discussion with intensive care services here as well as general surgery.. For details of the plan of care for today please refer to record his progress note. - Time Spent with Patient Total time spent providing and/or coordinating discharge services: - Discharge Medications Prescriptions: Srsynhrwngoz-Egzm-Nbipxdnl,Iso [Zosyn 3.375 gm/50 ml Galaxy] 3.375 gm IV Q8HR # 120 froz.piggy Vancomycin HCl in 5 % Dextrose [Vancomycin 2 Gram/500 ml-D5w] 2 gm IV DAILY # 120 plast..bag Home Medications: BuPROPion XL (24 HR) [Wellbutrin Xl] 150 mg PO DAILY 11/24/17 [History] Acetaminophen [Tylenol] 650 mg PO Q6HR PRN tablet 11/25/17 [Rx] Heparin 5,000 unit SQ Q12HCO vial 11/25/17 [Rx] Mag Hydrox/Al Hydrox/Simeth [Maalox] 30 ml PO Q6HR PRN udc 11/25/17 [Rx] Pantoprazole [Protonix] 40 mg IVP BID vial 11/25/17 [Rx] Vysmqbfilxzl-Jinq-Mbqxcbfq,Iso [Zosyn 3.375 gm/50 ml Galaxy] 3.375 gm IV Q8HR # 120 froz.piggy 11/25/17 [Rx] Vancomycin HCl in 5 % Dextrose [Vancomycin 2 Gram/500 ml-D5w] 2 gm IV DAILY # 120 plast..bag 11/25/17 [Rx] Allergies/Adverse Reactions: 3 Allergy/AdvReac Type Severity Reaction Status Date / Time No Known Allergies Allergy Verified 11/24/17 10:01 Date of admission: 11/23/17 19:47 Primary care physician: Saul Ness Consults: 11/24/17 12:14 Consult to Infectious Diseases [CONS] Routine Consulting Provider: Infectious Disease Doreen Reason for Consult: Cellulitis. Failed Bactrim Time Notified: 12:15 Call Completed: Yes 11/25/17 10:40 Consult to Nephrology [CONS] Routine Consulting Provider: Kidney Doreen/NAZ/NICHO/JAX Reason for Consult: ARF Time Notified: 10:40 Call Completed: Yes - Constitutional Vitals: Temp Pulse Resp BP Pulse Ox 100 F H 120 46 107/68 100 11/25/17 12:08 11/25/17 12:08 11/25/17 12:08 11/25/17 12:08 11/25/17 12:08 General appearance: Present: A&O X 3, morbidly obese, pleasant, no acute distress Exam: Please refer to today's progress note for further details about her examination - Patient Status Disposition: Admitted As Inpatient Condition: Critical Functional capacity at discharge: wheelchair bound Overall status at discharge: patient is not back to baseline - Discharge Instructions Follow Up With: Bella Morales DO [Primary Care Provider] - - Diet and Activity Activity: increase activity as tolerated Diet: other
--- NOTE | 2017-11-25 15:02 | Pulmonology Consult Note ---
<Carlos Sy - Last Filed: 11/25/17 15:04> Date of Encounter: 11/25/17 Time of Encounter: 15:02 Assessment and Plan (1) Acute respiratory failure Status: Acute Patient was in acute respiratory failure with hypoxia. Most likely secondary to patient's sepsis as well as fluid overload due to patient being in severe sepsis needing IV fluids. X-ray was ordered as well as portable KUB which did have evidence of fluid overload. Patient was given Lasix for diuresis. Stat ABG showed 7.34/47/62///. Patient does not have history of smoking or any pulmonary pathology. At this time patient is doing well on nasal cannula for oxygen. Oxygen saturations have been normal. Patient does seem well enough to be transferred up to [facility] for her leg cellulitis for reevaluation. At this time patient does not need intubation Qualifiers: Respiratory failure complication: hypoxia Qualified Code(s): J96.01 - Acute respiratory failure with hypoxia (2) Cellulitis Status: Acute Patient does have noticeable right lower extremity cellulitis. This could be early necrotizing fasciitis. CT is recommended results are still pending at this time. Patient does have elevated white count and does meet Sirs criteria severe sepsis. Patient is nonseptic shock his blood pressure has been stable. Do recommend transfer to tertiary care center for further evaluation by surgeon for possible necrotizing fasciitis. Continue antibiotics including Zosyn, vancomycin, clindamycin Qualifiers: Site of cellulitis: extremity Site of cellulitis of extremity: lower extremity Laterality: right Qualified Code(s): L03.115 - Cellulitis of right lower limb (3) Severe sepsis Status: Resolved Patient does meet severe sepsis criteria as patient does have source, tachycardia as well as a temperature and leukocytosis. Patient is getting antibiotics patient was fluid resuscitated. We will not give patient more fluids as she did become fluid overloaded and had difficulty breathing when to acute respiratory distress. Patient did not need to be intubated she was given Lasix for diuresis is doing much better after that. We again recommend patient to be transferred to tertiary care center for further evaluation for necrotizing fasciitis. History of Present Illness Consult date: 11/25/17 Requesting physician: Jhonny Alberto Reason for consult: other (Critical care management) Chief complaint: Right leg cellulitis History of present illness: Patient originally per presented to the emergency department on 78 was seen there for a right lower 70 swelling and redness that started 4 days prior. Patient was seen before that on the early hours in morning for the same issue. They noticed the area had started to get larger despite being discharged home on Bactrim so patient was then admitted for IV antibiotics and further surgery consultation. A traore did meet Sirs criteria with tachypnea and elevated white count as well as a source of infection. He also had an AK I. 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 She was started on vancomycin and Zosyn as well as clindamycin. Patient blood pressure and lactic acid have been normal. Did receive IV fluid resuscitation. Surgery saw the patient was worried about possible necrotizing fasciitis so CT was done but patient is unable to get contrast. Due to this patient will most likely be transferred up to [facility] for further evaluation Past Med Surg Social Fam HX - Past Medical History Medical history: GERD, hypertension Additional medical history: Acid reflux Psychiatric history: depression - Past Surgical History Surgical History: hysterectomy - Social History Smoking Status: Never smoker Smokeless Tobacco Status: No Alcohol use: none Drug use: none Medications and Allergies BuPROPion XL (24 HR) [Wellbutrin Xl] 150 mg PO DAILY 11/24/17 [History] Acetaminophen [Tylenol] 650 mg PO Q6HR PRN tablet 11/25/17 [Rx] Heparin 5,000 unit SQ Q12HCO vial 11/25/17 [Rx] Mag Hydrox/Al Hydrox/Simeth [Maalox] 30 ml PO Q6HR PRN udc 11/25/17 [Rx] Pantoprazole [Protonix] 40 mg IVP BID vial 11/25/17 [Rx] Avxseaqjkjhy-Fimf-Gmnvkzbd,Iso [Zosyn 3.375 gm/50 ml Galaxy] 3.375 gm IV Q8HR # 120 froz.piggy 11/25/17 [Rx] Vancomycin HCl in 5 % Dextrose [Vancomycin 2 Gram/500 ml-D5w] 2 gm IV DAILY # 120 plast..bag 11/25/17 [Rx] 3 Allergy/AdvReac Type Severity Reaction Status Date / Time No Known Allergies Allergy Verified 11/24/17 10:01 All Systems: The remainder of the systems were reviewed and are negative - Constitutional Constitutional: fever(s), no anorexia, no chills, no daytime sleepiness, no frequent falls, no headache(s) - EENT Eyes: no loss of peripheral vision, no loss of vision Nose, mouth and throat: no abnormal hearing, no dizziness, no headache(s), no nasal congestion, no nasal discharge - Cardiovascular Cardiovascular: edema, no chest pain, no chest pain at rest, no chest pain with activity, no dyspnea, no leg ulcers - Respiratory Respiratory: no cough, no dyspnea, no dyspnea on exertion, no wheezing, no stridor - Gastrointestinal Gastrointestinal: no abdominal pain, no cramping, no diarrhea, no heartburn, no hematemesis, no hematochezia, no nausea, no vomiting - Genitourinary Genitourinary: no breast mass, no change in urinary stream, no difficulty urinating, no difficulty voiding, no dysmenorrhea, no dysuria - Musculoskeletal Musculoskeletal: joint pain, no weakness, no abnormal gait, no arthralgias, no back pain, no joint swelling - Integumentary Integumentary: erythema, no rash, no jaundice - Neurological Neurological: no abnormal gait, no abnormal hearing, no abnormal movements, no frequent falls, no headache(s), no radicular pain, no restless legs, no tremor(s ), no vertigo, no weakness - Psychiatric Psychiatric: no anxiety - Endocrine Endocrine: no cold intolerance, no deeping of the voice - Hematologic/Lymphatic Hematologic/Lymphatic: no easy bleeding, no easy bruising, no lymphadenopathy - Allergic/Immunologic Allergic/Immunologic: no tongue swelling, no throat swelling, no itchy eyes Physical Examination Vital Signs: Vital Signs, Last 4 Hours Temp Pulse Resp BP Pulse Ox 11/25/17 14:19 114 11/25/17 12:08 100 F H 120 46 107/68 100 11/25/17 11:10 99.9 F H 120 42 133/73 91 General appearance: no acute distress, alert, other Eyes: nonicteric ENT: oropharynx moist Neck: supple Effort: normal Inspection: normal Auscultation: bilateral: clear Cardiovascular: regular rate and rhythm Gastrointestinal: normoactive bowel sounds, soft, non-tender, non-distended Integumentary: normal Extremities: no cyanosis, no clubbing, edema (Patient does have 2+ edema bilaterally. The right lower extremity does have a large cellulitic erythematous area. There is one area in site it that is also blue in coloration. This is very warm to touch. This does seem like cellulitis there is no signs of crepitus.) Musculoskeletal: no deformities, ROM normal normal mental status, non-focal exam, pupils equal and round, motor strength normal and symmetric Results - Laboratory Findings CBC and BMP: 11/25/17 11:45 11/25/17 08:53 ABG ABG pH 7.34 pH Units (7.32-7.45) 11/25/17 10:56 ABG pCO2 47 mmHg (35-45) H 11/25/17 10:56 ABG pO2 62 mmHg (85-104) L 11/25/17 10:56 ABG O2 Saturation 90 % (95-98) L 11/25/17 10:56 PT/INR, D-dimer PT 12.6 Seconds (9.4-12.1) H 11/25/17 11:45 Abnormal lab findings: Abnormal lab results WBC 18.7 K/mcL (4.3-11.1) H 11/25/17 11:45 Hgb 10.5 g/dL (11.5-15.4) L 11/25/17 11:45 Hct 33.9 % (35.3-44.9) L 11/25/17 11:45 MCH 27.1 pg (28.0-33.3) L 11/25/17 11:45 MCHC 31.0 g/dL (31.6-35.5) L 11/25/17 11:45 RDW 16.0 % (11.5-14.5) H 11/25/17 11:45 Band Neutrophils % 26.0 % (0-4) H 11/25/17 08:53 Neutrophils # 16.3 K/mcL (1.6-8.9) H 11/25/17 08:53 Nucleated RBCs/100 WBC 0.1 /100 WBC (0) H 11/25/17 08:53 PT 12.6 Seconds (9.4-12.1) H 11/25/17 11:45 Heparin Anti-Xa, Unfract 0.02 IU/mL (0.30-0.70) L 11/25/17 11:45 ABG pCO2 47 mmHg (35-45) H 11/25/17 10:56 ABG pO2 62 mmHg (85-104) L 11/25/17 10:56 ABG O2 Saturation 90 % (95-98) L 11/25/17 10:56 Carbon Dioxide 22 mEq/L (23-29) L 11/25/17 08:53 BUN 49 mg/dL (6-20) H 11/25/17 08:53 Creatinine 2.09 mg/dL (0.60-1.20) H 11/25/17 08:53 Est GFR ( Amer) 29 (> 60) L 11/25/17 08:53 Est GFR (Non-Af Amer) 24 (> 60) L 11/25/17 08:53 Glucose 186 mg/dL (70-105) H 11/25/17 08:53 POC Glucose 142 mg/dL (70-99) H 11/25/17 14:07 Calculated Osmolality 308 (280-300) H 11/25/17 08:53 Lactic Acid 2.6 mmol/L (0.5-2.2) H 11/25/17 11:45 Urine Protein 100 mg/dL (Neg-Trace) H 11/24/17 08:10 Urine Blood Small (Negative) H 11/24/17 08:10 - Clinical Findings Intake & Output: Intake & Output 11/24/17 11/25/17 11/25/17 23:59 07:59 15:59 Intake Total 500 / 500 340 / 340 Balance 500 / 500 340 / 340 Weight 195.7 kg Consult Discharge Plan - Plan Referrals: Bella Morales DO [Primary Care Provider] - Prescriptions: Efardkqinzxc-Sjkx-Okwlwxng,Iso [Zosyn 3.375 gm/50 ml Galaxy] 3.375 gm IV Q8HR # 120 froz.piggy Vancomycin HCl in 5 % Dextrose [Vancomycin 2 Gram/500 ml-D5w] 2 gm IV DAILY # 120 plast..bag <Mariposa Romano - Last Filed: 11/25/17 17:00> Date of Encounter: 11/25/17 All Systems: The remainder of the systems were reviewed and are negative Physical Examination Vital Signs: Vital Signs, Last 4 Hours Pulse 11/25/17 14:19 114 Results - Laboratory Findings CBC and BMP: 11/25/17 11:45 11/25/17 08:53 ABG ABG pH 7.34 pH Units (7.32-7.45) 11/25/17 10:56 ABG pCO2 47 mmHg (35-45) H 11/25/17 10:56 ABG pO2 62 mmHg (85-104) L 11/25/17 10:56 ABG O2 Saturation 90 % (95-98) L 11/25/17 10:56 PT/INR, D-dimer PT 12.6 Seconds (9.4-12.1) H 11/25/17 11:45 Abnormal lab findings: Abnormal lab results WBC 18.7 K/mcL (4.3-11.1) H 11/25/17 11:45 Hgb 10.5 g/dL (11.5-15.4) L 11/25/17 11:45 Hct 33.9 % (35.3-44.9) L 11/25/17 11:45 MCH 27.1 pg (28.0-33.3) L 11/25/17 11:45 MCHC 31.0 g/dL (31.6-35.5) L 11/25/17 11:45 RDW 16.0 % (11.5-14.5) H 11/25/17 11:45 Band Neutrophils % 26.0 % (0-4) H 11/25/17 08:53 Neutrophils # 16.3 K/mcL (1.6-8.9) H 11/25/17 08:53 Nucleated RBCs/100 WBC 0.1 /100 WBC (0) H 11/25/17 08:53 PT 12.6 Seconds (9.4-12.1) H 11/25/17 11:45 Heparin Anti-Xa, Unfract 0.02 IU/mL (0.30-0.70) L 11/25/17 11:45 ABG pCO2 47 mmHg (35-45) H 11/25/17 10:56 ABG pO2 62 mmHg (85-104) L 11/25/17 10:56 ABG O2 Saturation 90 % (95-98) L 11/25/17 10:56 Carbon Dioxide 22 mEq/L (23-29) L 11/25/17 08:53 BUN 49 mg/dL (6-20) H 11/25/17 08:53 Creatinine 2.09 mg/dL (0.60-1.20) H 11/25/17 08:53 Est GFR ( Amer) 29 (> 60) L 11/25/17 08:53 Est GFR (Non-Af Amer) 24 (> 60) L 11/25/17 08:53 Glucose 186 mg/dL (70-105) H 11/25/17 08:53 POC Glucose 142 mg/dL (70-99) H 11/25/17 14:07 Calculated Osmolality 308 (280-300) H 11/25/17 08:53 Lactic Acid 2.6 mmol/L (0.5-2.2) H 11/25/17 11:45 Urine Protein 100 mg/dL (Neg-Trace) H 11/24/17 08:10 Urine Blood Small (Negative) H 11/24/17 08:10 - Clinical Findings Intake & Output: Intake & Output 11/25/17 11/25/17 11/25/17 07:59 15:59 23:59 Intake Total 340 / 340 Balance 340 / 340 Weight 195.7 kg - Attending Attestation I examined this patient and my medical decision-making was reviewed with the Resident Physician. I agree with the documented findings, disposition and treatment plan as described except to the extent set forth below. Patient seen and examined. Labs, radiology, chart personally reviewed. Agree with resident's history and physical, assessment, plan with following comments: PHYSICIANS ASSISTANT: Patient follows commands, Pulmonary: Acceptable oxygenation and ventilation, however it is concerning that her condition could deteriorate with her her sepsis Cardiovascular: stable, however she could deteriorate because of her sepsis. GI: Nutrition per dietary and GI prophylaxis per routine. Keep NPO Heme: DVT prophylaxis per routine ID: Continue antibiotics and plan to de-escalation. Patient has significant cellulitis of lower extremities and discussed with the surgeon and we both agreed due to her body mass index and also overall condition deteriorating that patient to be transferred and this was discussed with the primary team also. Renal; urine out put and renal funtion reviewed Endorcine: blood glucose is monitored Lines: all lines checked and no evidence of infections Skin: skin care to prevent pressure ulcers per nursing routine care Thank you for consultation
--- NOTE | 2017-11-25 15:48 | Infectious Disease Progress No ---
Date of Encounter: 11/25/17 Time of Encounter: 10:20 - Subjective Interval history: Patient seen and examined. Overnight events noted. Per nursing, patient has been restless. Developed sudden-onset epigastric pain that the patient describes as a pulled muscle in her abdomen. Reports night sweats and intermittent fevers and chills. Denies chest pain, shortness of breath, or cough , but appears tachypneic and clammy. Denies nausea or vomiting. Had some diarrhea last night x 2, but none this morning. Denies pain in the joints or extremities and states her RLE feels better. Denies oral thrush or new skin lesions. Only 150ml urine output documented yesterday and patient states she has not voided this morning. Recommended to nursing to contact the hospitalist attending physician. Infect Dis PN-Objective Data - Labs CBC & Chem 7: 11/25/17 11:45 11/25/17 08:53 Labs: Laboratory Results - last 24 hr 11/25/17 11/25/17 11/25/17 08:53 08:53 10:56 WBC 18.5 H D RBC 3.64 L Hgb 10.3 L Hct 32.1 L MCV 88.2 MCH 28.3 MCHC 32.1 RDW 15.9 H Plt Count 220 MPV 11.3 Seg Neutrophils % 62.0 Band Neutrophils % 26.0 H Lymphocytes % 8.0 Monocytes % 4.0 Neutrophils # 16.3 H Lymphocytes # 1.5 Monocytes # 0.7 Nucleated RBCs/100 WBC 0.1 H Platelet Estimate Normal PT INR Heparin Anti-Xa, Unfract Sample Site L Radial ABG pH 7.34 ABG pCO2 47 H ABG pO2 62 L ABG HCO3 25 ABG Total CO2 26 ABG O2 Saturation 90 L ABG Base Excess -1 Heber Test Positive O2 Delivery Device Cannula Inspired O2 32.0 Sodium 140 Potassium 4.2 Chloride 105 Carbon Dioxide 22 L BUN 49 H Creatinine 2.09 H Est GFR ( Amer) 29 L Est GFR (Non-Af Amer) 24 L BUN/Creatinine Ratio 23 Glucose 186 H POC Glucose Calculated Osmolality 308 H Lactic Acid Calcium 8.7 11/25/17 11/25/17 11/25/17 11:45 11:45 11:45 WBC 18.7 H RBC 3.87 Hgb 10.5 L Hct 33.9 L MCV 87.6 MCH 27.1 L MCHC 31.0 L RDW 16.0 H Plt Count 247 MPV 11.2 Seg Neutrophils % Band Neutrophils % Lymphocytes % Monocytes % Neutrophils # Lymphocytes # Monocytes # Nucleated RBCs/100 WBC Platelet Estimate PT 12.6 H INR 1.1 Heparin Anti-Xa, Unfract 0.02 L Sample Site ABG pH ABG pCO2 ABG pO2 ABG HCO3 ABG Total CO2 ABG O2 Saturation ABG Base Excess Heber Test O2 Delivery Device Inspired O2 Sodium Potassium Chloride Carbon Dioxide BUN Creatinine Est GFR ( Amer) Est GFR (Non-Af Amer) BUN/Creatinine Ratio Glucose POC Glucose Calculated Osmolality Lactic Acid 2.6 H Calcium 11/25/17 14:07 WBC RBC Hgb Hct MCV MCH MCHC RDW Plt Count MPV Seg Neutrophils % Band Neutrophils % Lymphocytes % Monocytes % Neutrophils # Lymphocytes # Monocytes # Nucleated RBCs/100 WBC Platelet Estimate PT INR Heparin Anti-Xa, Unfract Sample Site ABG pH ABG pCO2 ABG pO2 ABG HCO3 ABG Total CO2 ABG O2 Saturation ABG Base Excess Heber Test O2 Delivery Device Inspired O2 Sodium Potassium Chloride Carbon Dioxide BUN Creatinine Est GFR ( Amer) Est GFR (Non-Af Amer) BUN/Creatinine Ratio Glucose POC Glucose 142 H Calculated Osmolality Lactic Acid Calcium Cultures: Serology 11/24/17 11/24/17 Range/Units 08:10 08:10 Urine Color Yellow (Yellow) Urine Clarity Clear (Clear) Urine pH 6.5 (5.0-8.0) pH Units Ur Specific [place] 1.025 (1.010-1.025) Urine Protein 100 H (Neg-Trace) mg/dL Urine Glucose (UA) Normal (Normal) mg/dL Urine Ketones Negative (Negative) mg/dL Urine Blood Small H (Negative) Urine Nitrite Negative (Negative) Urine Bilirubin Negative (Negative) Urine Urobilinogen Normal (Normal) mg/dL Ur Leukocyte Esterase Negative (Negative) Urine Creatinine 99 mg/dL Urine Sodium 30.4 mEq/L - Impressions Impressions Retroperitoneum Ultrasound 11/24/17 16:30 IMPRESSION: No suspicious renal mass or hydronephrosis. Left renal cortical cysts are noted. D/ / Mg Troncoso MD / Mg Troncoso MD Interpreting Provider: Mg Troncoso MD Chest X-Ray 11/25/17 10:28 IMPRESSION: Low lung volumes. Cardiomegaly with probable interstitial edema and small bilateral pleural effusions. Findings could reflect congestive heart failure in the appropriate clinical setting. D/ / 11/25/2017 11:28:07 Edita Jean MD / [facility] Interpreting Provider: Edita Jean MD Lower Extremity CT 11/25/17 12:43 IMPRESSION: 1. No change suspected cellulitis without abscess or gas collection. 2. No acute osseous abnormality. D/ / 11/25/2017 14:20:49 Tal Piña MD / [facility] Interpreting Provider: Tal Piña MD Exam - Constitutional Vitals: Temp Pulse Resp BP Pulse Ox 100 F H 114 46 107/68 100 11/25/17 12:08 11/25/17 14:19 11/25/17 12:08 11/25/17 12:08 11/25/17 12:08 General appearance: cooperative, morbidly obese, no febrile - Head Head exam: Present: atraumatic, normal inspection, normocephalic - Eye Eye exam: Present: EOMI, normal appearance, PERRL Pupils: Present: normal accommodation - ENT ENT exam: Present: mucous membranes moist - Neck Neck exam: Present: normal inspection - Respiratory Respiratory exam: Present: CTAB, tachypnea. Absent: rales, respiratory distress , rhonchi, wheezes - Cardiovascular Cardiovascular exam: Present: tachycardia. Absent: irregular rhythm - GI/Abdominal GI/Abdominal exam: Present: distended (obese), normal bowel sounds, soft. Absent: tenderness - Extremities Exam Extremities exam: Present: pedal edema (3+ RLE, improved.). Absent: joint swelling, tenderness Additional comments: RLE remains edematous, but improved. Erythema persists, but more purple colored than beefy red. Non-tender. Not warm to touch. Blisters noted to the anterior traore with serous drainage. - Neurological Exam Neurological exam: Present: alert, oriented X3, no focal deficits - Psychiatric Psychiatric exam: Present: anxious - Skin Skin exam: Present: dry, pallor. Absent: warm (cool) Consult Discharge Plan - Plan Referrals: Bella Morales DO [Primary Care Provider] - Prescriptions: Sbcjffjcsddv-Kslw-Yjdjevnb,Iso [Zosyn 3.375 gm/50 ml Galaxy] 3.375 gm IV Q8HR # 120 froz.piggy Vancomycin HCl in 5 % Dextrose [Vancomycin 2 Gram/500 ml-D5w] 2 gm IV DAILY # 120 plast..bag - Attending Attestation I examined this patient and my medical decision-making was reviewed with the Resident Physician. I agree with the documented findings, disposition and treatment plan as described except to the extent set forth below. Patient seems to be doing much worse clinically she has sudden onset abdominal pain. Patient was also short of breath. Her right lower extremity actually appears unchanged. There is no fluctuance no crepitus no signs of necrotizing fasciitis. Apparently, and the patient tells me that she was being moved in bed where she started having sudden onset abdominal pain. On physical exam the abdominal pain is epigastric and maybe a little bit in the right upper quadrant. Patient tells me that she does still has her gallbladder. She denies history of pancreatitis. She denies history of diverticulosis or diverticulitis that she knows of. I spoke with the hospitalist team. Because of the new acute kidney injury severe sepsis lactic acidosis I was planning to switch the antibiotics to daptomycin and meropenem. I also recommended CT abdomen and pelvis with oral contrast and repeat CT right lower extremity. Apparently patient was severely weak and they decided to transfer to [facility]. CTs were Performed.
[2017-11-25] MEDS ORDERED: Aminoglycoside Consult 1 EACH MC ONE (15:49)
[2017-11-25] MEDS ORDERED: *HR* Heparin 5,000 UNIT/ML VIAL SQ SCH (18:00)
--- NOTE | 2017-11-27 06:39 | Electrocardiograph Report ---
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
== END 2017-11-25 15:50 | DRG 871 ==
LOC: EMEROO 16:37 → 3ANU 16:37 → SUATTDRO 19:47 → 3ANU 20:20 → ICNU 11-25 13:53
PROVIDERS: ADMIT Internal Medicine; ATTEND Internal Medicine